=== PATIENT | male | born 1965 | race Caucasian/White ===

== ENCOUNTER → 2017-07-13 | Outpatient (CLI) | payer BC ==
[~2017-07-13] MED LIST: GADOBUTROL 10 MMOL/10 ML VIAL IV ONE
--- NOTE | 2017-07-13 16:23 | KCIC ---
ABDOMEN WO/W CONTRAST Clinical Indication: Abnormal outside ultrasound of right kidney. Liver cyst. Elevated bilirubin. Comparison: None. TECHNIQUE: Routine multiplanar multiple pulse sequence images of the abdomen are obtained before and after 8 cc Gadavist IV contrast using renal protocol. Findings: There is mild fatty infiltration of the liver. The dome of the liver is not imaged as is typical for renal protocol. Gallbladder, spleen, pancreas, adrenal glands, and abdominal aorta caliber are normal. Biliary tree and pancreatic duct are normal caliber. There is a 2 x 2 x 2.3 cm partially exophytic thin-walled cyst of the lower pole of the right kidney. The cyst does not enhance. There is no hydronephrosis or perinephric stranding. There is a tiny probable cortical cyst of the lower pole of the left kidney that is best seen on the postcontrast nephrographic phase images. No evidence of bowel obstruction. No abdominal ascites is seen. IMPRESSION: 1. There is a simple cyst partially exophytic from the lower pole of the right kidney. 2. Mild fatty infiltration of the liver. Electronically signed by: Tom Camarena MD (07/13/2017 4:19 PM) [id number]
== END | disposition home or self-care (01) ==
LOC: KCIC MRI 14:31
PROVIDERS: ATTEND Family Medicine
DX: N28.1 Cyst of kidney, acquired (principal); K76.0 Fatty (change of) liver, not elsewhere classified; K76.89 Other specified diseases of liver
CPT/HCPCS: 74183; 82565; A9585